=== PATIENT | female | born 1985 ===

== ENCOUNTER 2019-04-29 13:58 | Inpatient (IN) | payer OTHER ==
[~2019-04-29] VITALS: Ht 160 cm; Wt 67.6 kg
[2019-04-29] MEDS ORDERED: PRENATAL TABLE1 EAC1 PO (16:25)
[2019-04-29] MEDS ORDERED: FOLIC ACID1 MG PO (16:26)
== END 2019-04-30 09:12 | disposition home or self-care (01) | DRG 833 ==
LOC: LDR 13:58
PROVIDERS: ADMIT Specialist
PROC: BY4FZZZ Ultrasonography of Third Trimester, Single Fetus (ICD-10-PCS; principal; 2019-04-29)
PROC: BY4FZZZ Ultrasonography of Third Trimester, Single Fetus (ICD-10-PCS; 2019-04-29)
PROC: 4A1HXCZ Monitoring of Products of Conception, Cardiac Rate, External Approach (ICD-10-PCS; 2019-04-29)
DX: O26.893 Other specified pregnancy related conditions, third trimester (principal); O47.03 False labor before 37 completed weeks of gestation, third trimester; R10.2 Pelvic and perineal pain; Z34.03 Encounter for supervision of normal first pregnancy, third trimester

== ENCOUNTER 2019-05-23 14:28 | Inpatient (IN) | payer OTHER ==
[~2019-05-23] VITALS: Ht 160 cm; Wt 67.6 kg
[~2019-05-23 14:28] MED LIST: FOLIC ACID1 MG PO; PRENATAL TABLE1 EAC1 PO
[2019-06-02] MEDS ORDERED: PRENATAL TABLE1 EAC1 PO (00:36)
[2019-06-02] MEDS ORDERED: FERROCITE PLUS1 EACH PO (00:37)
== END 2019-06-04 17:24 | disposition home or self-care (01) | DRG 807 ==
LOC: OB/GYN 06-02 00:06 → LDR 06-02 00:06 → OB/GYN 06-02 06:05
PROVIDERS: ADMIT Specialist
PROC: 10E0XZZ Delivery of Products of Conception, External Approach (ICD-10-PCS; principal; 2019-06-02)
PROC: 0HQ9XZZ Repair Perineum Skin, External Approach (ICD-10-PCS; 2019-06-02)
PROC: 4A1HXCZ Monitoring of Products of Conception, Cardiac Rate, External Approach (ICD-10-PCS; 2019-06-02)
PROC: 4A033R1 Measurement of Arterial Saturation, Peripheral, Percutaneous Approach (ICD-10-PCS; 2019-06-02)
DX: O70.0 First degree perineal laceration during delivery (principal); Z37.0 Single live birth; Z3A.38 38 weeks gestation of pregnancy